=== PATIENT | female | born 1935 | race Caucasian/White ===

== ENCOUNTER 2022-03-22 10:25 | Emergency (ER) | payer MEDICARE, OTHER ==
[~2022-03-22] VITALS: Ht 154.9 cm; Wt 45.4 kg
[~2022-03-22 10:25] MED LIST: CRESTOR20 MG PO; LEVOTHYROXINE50 MCG PO; NORVASC5 MG PO
[2022-03-22] MEDS ORDERED: ELIQUIS2.5 MG PO (11:26)
[2022-03-22] MEDS ORDERED: FLUTICASONE PRO16 GM NAS (11:26)
[2022-03-22] MEDS ORDERED: METOPROLOL SUCC25 MG PO (11:26)
== END 2022-03-22 13:39 | disposition home or self-care (01) ==
LOC: ED 10:25
DX: R60.0 Localized edema (principal); I10 Essential (primary) hypertension; E03.9 Hypothyroidism, unspecified; Z79.899 Other long term (current) drug therapy; Z79.01 Long term (current) use of anticoagulants
CPT/HCPCS: 36415; 80053; 83880; 85025; 99283

== ENCOUNTER 2022-11-13 15:58 | Inpatient (IN) | payer MEDICARE, OTHER ==
[~2022-11-13] VITALS: Ht 154.9 cm; Wt 50.0 kg
--- NOTE | ~2022-11-13 | EKG ---
[facility] [address] [place], [place] [address] Draft EK completed, results pending confirmation PATIENT NAME: THOMAS BARCENAS Electrocardiogram DATE OF : [birth year] PHYSICIAN: PRELIMINARY REPORT #: [id number] REPORT IS CONFIDENTIAL AND NOT TO BE RELEASED WITHOUT AUTHORIZATION
--- OUTSIDE RECORDS SUMMARY | ~2022-11-13 | XMS | Continuity of Care Document ---
Demographics + + + | Address | [address] | | | [place] [address] | + + + | Preferred Language | Unknown | + + + | Marital Status | | + + + | Yazdanism Affiliation | Unknown | + + + | Race | White | + + + | Ethnic Group | Not or | + + + Author + + + | Author | [facility] | + + + | Organization | [facility] | + + + | Address | [address] | | | [place] [address] | + + + | Phone | | + + + Care Team Providers + + + + | Care Supervisor Coating Name | Role | Phone | + + + + Unavailable | Unavailable | + + + + Unavailable | Unavailable | + + + + Allergies No information. Encounters No information. Functional Status No information. Immunizations No information. Medications + + + + | date | description | facility | + + + + | 2022-03-22 00:00 | APIXABAN | [facility] | + + + + | 2022-03-22 00:00 | FLUTICASONE PROPIONATE 50 | [facility] | | | [facility] | | + + + + | 2022-03-22 00:00 | AMLODIPINE BESYLATE | [facility] | + + + + | 2022-03-22 00:00 | ROSUVASTATIN CALCIUM | [facility] | + + + + | 2022-03-22 00:00 | METOPROLOL SUCCINATE | [facility] | + + + + | 2022-03-22 00:00 | LEVOTHYROXINE SODIUM | [facility] | + + + + Problems + + + + | date | description | facility | + + + + | 2022-03-22 00:00 | Edema | [facility] | + + + + Procedures No information. Results/Labs +--------+--------+ +---------+--------+---------+ | test | date | facility | value | unit | notes | +--------+--------+ +---------+--------+---------+ + + | Result panel 1 | + + + + + +-------+ + + | | 2022-03-22 | [facility] | 3.3 | (missing) | (missing) | | (unavailable | 11:30:08 [facility] | | | + + + +-------+ + + + + | Result panel 2 | + + + + + +--------+ + + | | 2022-03-22 | [facility] | 50.2 | (missing) | (missing) | | (unavailable | 11:30:08 [facility] | | | | + + + +--------+ + + + + | Result panel 3 | + + + + + +--------+ + + | | 2022-03-22 | [facility] | 34.2 | (missing) | (missing) | | (unavailable | 11:30:08 [facility] | | | | + + + +--------+ + + + + | Result panel 4 | + + + + + +--------+ + + | | 2022-03-22 | [facility] | 14.1 | (missing) | (missing) | | (unavailable | 11:30:08 [facility] | | | | + + + +--------+ + + + + | Result panel 5 | + + + + + +-------+ + + | | 2022-03-22 | [facility] | 0.9 | (missing) | (missing) | | (unavailable | 11:30:08 [facility] | | | | + + + +-------+ + + + + | Result panel 6 | + + + + + +-------+ + + | | 2022-03-22 | [facility] | 0.6 | (missing) | (missing) | | (unavailable | 11:30:08 [facility] | | | | + + + +-------+ + + + + | Result panel 7 | + + + + + +------+---------+ + | | 2022-03-22 | [facility] | 97 | mg/dL | (missing) | | (unavailable | 11:30:08 [facility] | | | | + + + +------+---------+ + + + | Result panel 8 | + + + + + +------+---------+ + | | 2022-03-22 | [facility] | 17 | mg/dL | (missing) | | (unavailable | 11:30:08 [facility] | | | | + + + +------+---------+ + + + | Result panel 9 | + + + + + +--------+---------+ + | | 2022-03-22 | [facility] | 0.90 | mg/dL | (missing) | | (unavailable | 11:30:08 [facility] | | | | + + + +--------+---------+ + + + | Result panel 10 | + + + + + +------+ + + | | 2022-03-22 | [facility] | 61 | (missing) | (missing) | | (unavailable | 11:30:08 [facility] | | | | + + + +------+ + + + + | Result panel 11 | + + + + + +---------+ + + | | 2022-03-22 | [facility] | 18.88 | (missing) | (missing) | | (unavailable | 11:30:08 [facility] | | | | + + + +---------+ + + + + | Result panel 12 | + + + + + +--------+ + + | | 2022-03-22 | [facility] | 3.69 | (missing) | (missing) | | (unavailable | 11::08 | [facility] | | | | + + + +--------+ + + + + | Result panel 13 | + + + + + +-------+ + + | | 2022-03-22 | [facility] | 140 | (missing) | (missing) | | (unavailable | 11:30:08 [facility] | | | | + + + +-------+ + + + + | Result panel 14 | + + + + + +-------+ + + | | 2022-03-22 | [facility] | 4.3 | (missing) | (missing) | | (unavailable | 11:30:08 [facility] | | | | + + + +-------+ + + + + | Result panel 15 | + + + + + +-------+ + + | | 2022-03-22 | [facility] | 104 | (missing) | (missing) | | (unavailable | 11:30:08 [facility] | | | | + + + +-------+ + + + + | Result panel 16 | + + + + + +------+ + + | | 2022-03-22 | [facility] | 26 | (missing) | (missing) | | (unavailable | 11:30:08 [facility] | | | | + + + +------+ + + + + | Result panel 17 | + + + + + +--------+ + + | | 2022-03-22 | [facility] | 14.3 | (missing) | (missing) | | (unavailable | 11:30:08 [facility] | | | | + + + +--------+ + + + + | Result panel 18 | + + + + + +-------+---------+ + | | 2022-03-22 | [facility] | 8.5 | mg/dL | (missing) | | (unavailable | 11:30:08 [facility] | | | | + + + +-------+---------+ + + + | Result panel 19 | + + + + + +-------+ + + | | 2022-03-22 | [facility] | 6.6 | (missing) | (missing) | | (unavailable | 11:30:08 [facility] | | | | + + + +-------+ + + + + | Result panel 20 | + + + + + +-------+ + + | | 2022-03-22 | [facility] | 3.5 | (missing) | (missing) | | (unavailable | 11:30:08 [facility] | | | | + + + +-------+ + + + + | Result panel 21 | + + + + + +-------+ + + | | 2022-03-22 | [facility] | 3.1 | (missing) | (missing) | | (unavailable | 11:30:08 [facility] | | | | + + + +-------+ + + + + | Result panel 22 | + + + + + +--------+ + + | | 2022-03-22 | [facility] | 1.13 | (missing) | (missing) | | (unavailable | 11:30:08 [facility] | | | | + + + +--------+ + + + + | Result panel 23 | + + + + + +--------+ + + | | 2022-03-22 | [facility] | 11.8 | (missing) | (missing) | | (unavailable | 11:30:08 [facility] | | | | + + + +--------+ + + + + | Result panel 24 | + + + + + +-------+ + + | | 2022-03-22 | [facility] | 0.5 | (missing) | (missing) | | (unavailable | 11:30:08 [facility] | | | | + + + +-------+ + + + + | Result panel 25 | + + + + + +------+ + + | | 2022-03-22 | [facility] | 24 | (missing) | (missing) | | (unavailable | 11:30:08 [facility] | | | | + + + +------+ + + + + | Result panel 26 | + + + + + +------+ + + | | 2022-03-22 | [facility] | 25 | (missing) | (missing) | | (unavailable | 11:30:08 [facility] | | | | + + + +------+ + + + + | Result panel 27 | + + + + + +------+ + + | | 2022-03-22 | [facility] | 41 | (missing) | (missing) | | (unavailable | 11:30:08 [facility] | | | | + + + +------+ + + + + | Result panel 28 | + + + + + +--------+ + + | | 2022-03-22 | [facility] | 36.3 | (missing) | (missing) | | (unavailable | 11:30:08 [facility] | | | | + + + +--------+ + + + + | Result panel 29 | + + + + + +--------+ + + | | 2022-03-22 | [facility] | 98.2 | (missing) | (missing) | | (unavailable | 11:30:08 [facility] | | | | + + + +--------+ + + + + | Result panel 30 | + + + + + +--------+ + + | | 2022-03-22 | [facility] | 32.1 | (missing) | (missing) | | (unavailable | 11:30:08 [facility] | | | | + + + +--------+ + + + + | Result panel 31 | + + + + + +--------+ + + | | 2022-03-22 | [facility] | 32.7 | (missing) | (missing) | | (unavailable | 11:30:08 [facility] | | | | + + + +--------+ + + + + | Result panel 32 | + + + + + +--------+ + + | | 2022-03-22 | [facility] | 14.2 | (missing) | (missing) | | (unavailable | 11:30:08 [facility] | | | | + + + +--------+ + + + + | Result panel 33 | + + + + + +-------+ + + | | 2022-03-22 | [facility] | 169 | (missing) | (missing) | | (unavailable | 11:30:08 [facility] | | | | + + + +-------+ + + Social History No information. Vital Signs + + + +---------+ | date | measurement | value | units | + + + +---------+ | 2022-03-22 00:00 | BMI | 18.9 | kg/m2 | + + + +---------+ | 2022-03-22 00:00 | BP_diastolic | 62 | mmHg | + + + +---------+ | 2022-03-22 00:00 | BP_systolic | 146 | mmHg | + + + +---------+ | 2022-03-22 00:00 | heart_rate | 49 | /min | + + + +---------+ | 2022-03-22 00:00 | height_metric | 154.94 | cm | + + + +---------+ | 2022-03-22 00:00 | height_standard | 61 | in | + + + +---------+ | 2022-03-22 00:00 | o2_saturation | 100 | % | + + + +---------+ | 2022-03-22 00:00 | respiration_rate | 16 | /min | + + + +---------+ | 2022-03-22 00:00 | temperature_metric | 36.89 | C | | | | | | + + + +---------+ | 2022-03-22 00:00 | | 98.4 | F | | | temperature_standar | | | | | d | | | + + + +---------+ | 2022-03-22 00:00 | weight_metric | 45.36 | kg | + + + +---------+ | 2022-03-22 00:00 | weight_standard | 100 | lb | + + + +---------+"
--- OUTSIDE RECORDS SUMMARY | ~2022-11-13 | XMS | Continuity of Care Document ---
Demographics + + + | Address | [address] | | | [place] [address] | + + + | Preferred Language | Unknown | + + + | Marital Status | | + + + | Mormon Affiliation | Unknown | + + + | Race | White | + + + | Ethnic Group | Not or | + + + Author + + + | Author | [facility] | + + + | Organization | [facility] | + + + | Address | [address] | | | [place] [address] | + + + | Phone | | + + + Care Team Providers + + + + | Care Rotor Casting Machine Setup Operator Name | Role | Phone | + + + + Unavailable | Unavailable | + + + + Unavailable | Unavailable | + + + + Allergies No information. Encounters No information. Functional Status No information. Immunizations No information. Medications + + + + | date | description | facility | + + + + | 2022-03-22 00:00 | APIXABAN | [facility] | + + + + | 2022-03-22 00:00 | FLUTICASONE PROPIONATE 50 | [facility] | | | [facility]CG | | + + + + | 2022-03-22 00:00 | AMLODIPINE BESYLATE | [facility] | + + + + | 2022-03-22 00:00 | ROSUVASTATIN CALCIUM | [facility] | + + + + | 2022-03-22 00:00 | METOPROLOL SUCCINATE | [facility] | + + + + | 2022-03-22 00:00 | LEVOTHYROXINE SODIUM | [facility] | + + + + Problems + + + + | date | description | facility | + + + + | 2022-03-22 00:00 | Edema | [facility] | + + + + Procedures No [...]
--- OUTSIDE RECORDS SUMMARY | ~2022-11-13 | XMS | Continuity of Care Document ---
Demographics + + + | Address | [address] | | | [place] [address] | + + + | Preferred Language | Unknown | + + + | Marital Status | | + + + | Hinduism Affiliation | Unknown | + + + | Race | White | + + + | Ethnic Group | Not or | + + + Author + + + | Author | [facility] | + + + | Organization | [facility] | + + + | Address | [address] | | | [place] [address] | + + + | Phone | | + + + Care Team Providers + + + + | Care Panel Builder Name | Role | Phone | + + + + Unavailable | Unavailable | + + + + Unavailable | Unavailable | + + + + Allergies and Intolerances + + + + + + | date | description | facility | reaction | severity | + + + + + + | (no date) | No Known Drug | [facility] | (no reaction) | (no severity) | | | Allergies | | | | + + + + + + Encounters No information. Functional Status No information. Immunizations No information. Medications + + + + | date | description | facility | + + + + | 2022-03-22 00:00 | APIXABAN | [facility] | + + + + | 2022-03-22 00:00 | FLUTICASONE PROPIONATE 50 | [facility] | | | [facility]CG | | + + + + | 2022-03-22 00:00 | AMLODIPINE BESYLATE | [facility] | + + + + | 2022-03-22 00:00 | ROSUVASTATIN CALCIUM | [facility] | + + + + | 2022-03-22 00:00 | METOPROLOL SUCCINATE | [facility] | + + + + | 2022-03-22 00:00 | LEVOTHYROXINE SODIUM | [facility] | + + + + Problems + + + + | date | description | facility | + + + + | 2022-03-22 00:00 | Edema | [facility] | + + + + [...]
[~2022-11-13 15:58] MED LIST changes: +ELIQUIS2.5 MG PO; +FLUTICASONE PRO16 GM NAS; +METOPROLOL SUCC25 MG PO
[2022-11-13 16:19] LABS: BASOPHILS 0.2 % (0-2); HEMATOCRIT 44.8 % (35.0-50.0); HEMOGLOBIN 14.7 g/dL (12.0-18.0); LYMPHOCYTES 4.6 % (24-44); MCH 31.3 (27-36); MCHC 32.8 g/dl (30-36); MCV 95.5 fl (81-99); MONOCYTES 7.8 % (0-12); NEUTROPHILS 87.4 % (39-80); PLATELET COUNT 221 K/uL (140-440); RBC 4.69 M/ul (4.3-5.7); RDW 14.4 (10.5-15.0)
[2022-11-13] MEDS ORDERED: FLUOXETINE HCL10 MG PO (16:25)
[2022-11-13 16:43] LABS: ALBUMIN 3.5 g/dL (3.4-5.0); ALCOHOL, MEDICAL <3 ng/dL (<3); ALKALINE PHOSPHATASE 104 U/L (46-116); ALT (SGPT) 44 U/L (14-59); ANION GAP 13.9 (7-21); AST (SGOT) 109 U/L (15-37); BILIRUBIN, TOTAL 0.9 ng/dL (0.2-1.0); CALCIUM 9.4 mg/dL (8.5-10.1); CARBON DIOXIDE 27 mmol/L (21-32); CHLORIDE 101 mmol/L (98-107); CREATININE, SERUM 1.08 mg/dL (0.55-1.02); GLOMERULAR FILTRATION RATE,EST 49 mL/min (>60); POTASSIUM 3.9 mmol/L (3.5-5.1); PROTEIN, TOTAL 7.4 g/dL (6.4-8.2); UREA NITROGEN 27 mg/dL (7-18)
[2022-11-13 16:44] LABS: CREATINE KINASE 3542 U/L (26-192)
[2022-11-13 17:06] LABS: ABO A; RH POSITIVE
[2022-11-13 17:07] LABS: ANTIBODY SCREEN NEGATIVE
[2022-11-13 17:52] LABS: BILIRUBIN, URINE NEGATIVE (negative); BLOOD/HGB, URINE LARGE (Negative); KETONE, URINE TRACE (Negative); LEUK ESTERASE, URINE NEGATIVE (negative); NITRITE, URINE NEGATIVE (negative); PH, URINE 5.5 (5-7)
[2022-11-13 17:54] LABS: AMPHETAMINES, UR NEGATIVE (NEGATIVE); BARBITURATES, UR NEGATIVE (NEGATIVE); BENZODIAZEPINES, UR NEGATIVE (NEGATIVE); BUPRENORPHINE,UR NEGATIVE (NEGATIVE); COCAINE, UR NEGATIVE (NEGATIVE); MARIJUANA (THC), UR NEGATIVE (NEGATIVE); MDMA, UR NEGATIVE (NEGATIVE); METHADONE, UR NEGATIVE (NEGATIVE); METHAMPHETAMINE, UR NEGATIVE (NEGATIVE); OPIATES, UR NEGATIVE (NEGATIVE); OXYCODONE, UR NEGATIVE (NEGATIVE); PHENCYCLIDINE, UR NEGATIVE (NEGATIVE); TRICYCLIC ANTIDEPRESSANT, UR NEGATIVE (NEGATIVE)
[2022-11-13 18:00] LABS: BACTERIA, URINE NONE SEEN /hpf (negative); CASTS, URINE NONE SEEN \\lpf; COLLECTION TYPE, URINE CLEAN CATCH; CRYSTALS, URINE NONE SEEN (0-1+); EPITHELIAL CELLS, URINE NONE SEEN /lpf (0-1+); REFLEX CULTURE, URINE No (No); WHITE BLOOD CELLS, URINE 0-1 /HPF (0-5)
--- NOTE | 2022-11-13 19:24 | EKG ---
[facility] [address] [place] [address] Signed Atrial fibrillation Nonspecific T wave abnormality Abnormal ECG When compared with ECG of 13-NOV-2022 18:05, (Unconfirmed) Current undetermined rhythm precludes rhythm comparison, needs review QT has shortened Confirmed by KIRSTY MCKEON MD ([id number]) on 11/13/2022 7:24:41 PM Electronically Signed By: KIRSTY MCKEON 11/13/22 192 PATIENT NAME: MERLYN BARCENASPARTH MADERA Electrocardiogram DATE OF : [birth year] PHYSICIAN: KIRSTY MCKEON REPORT #: [id number] REPORT IS CONFIDENTIAL AND NOT TO BE RELEASED WITHOUT AUTHORIZATION
--- NOTE | 2022-11-13 20:00 | NUR ---
RETREIVED PT FROM ED, RECEIVED REPORT FROM CHARLIE JONES, ALL QUESTIONS AND CONCERNS WERE ADDRESSED AT THIS TIME, SON AT BEDSIDE AND ACCOMPANIED PT TO CCU; PT IS A&O, FOLLOWS COMMANDS APPROPRIATELY, SPEACH IS SLURRED, HARD TO DETERMINE IF IT'S D/T NOT HAVING IN LOWER DENTURES OR SOME OTHER CAUSE, MRI IS SCHEDULED FOR A.M., NO OTHER DEFICITS NOTED, GENERALIZED WEAKNESS, VSS, AFEBRILE, LUNGS ARE CLEAR/DIMINISHED, CAP REFILL LESS THAN 3 SECS IN ALL EXTREMITIES, PERIPHERAL PULSES PRESENT, HR IN THE 60-70'S, AFIB, MULTIPLE REDDENED AREAS NOTES IN FLOW SHEETS, CALL LIGHT WITHIN REACH
[2022-11-13 20:20] VITALS: BP 174/77
--- NOTE | 2022-11-14 00:45 | NUR ---
PT ASLEEP, EASY TO AROUSE, PUREWICK IN PLACE, ALL NEEDS MET AT THIS TIME, CALL LIGHT WITHIN REACH
[2022-11-14 05:00] VITALS: BP 124/93
[2022-11-14 05:11] LABS: BASOPHILS 0.3 % (0-2); HEMATOCRIT 37.7 % (35.0-50.0); HEMOGLOBIN 12.5 g/dL (12.0-18.0); MCH 31.4 (27-36); MCHC 33.1 g/dl (30-36); MCV 94.8 fl (81-99); MONOCYTES 9.9 % (0-12); NEUTROPHILS 80.8 % (39-80); PLATELET COUNT 185 K/uL (140-440); RBC 3.97 M/ul (4.3-5.7); RDW 14.5 (10.5-15.0)
[2022-11-14 05:34] LABS: ALBUMIN 2.7 g/dL (3.4-5.0); ALBUMIN/GLOBULIN RATIO 0.87 (1.1-2.4); ANION GAP 13.8 (7-21); BILIRUBIN, TOTAL 0.7 ng/dL (0.2-1.0); BUN/CREATININE RATIO 29.26 (6.0-28.6); CALCIUM 8.2 mg/dL (8.5-10.1); CREATININE, SERUM 0.82 mg/dL (0.55-1.02); POTASSIUM 3.8 mmol/L (3.5-5.1); PROTEIN, TOTAL 5.8 g/dL (6.4-8.2)
--- NOTE | 2022-11-14 06:28 | NUR ---
PT STATED THAT SHE SLEPT WELL AND WAS COMFORTABLE THROUGHOUT EXECUTIVE ASSISTANT TO GENERAL COUNSEL,PT CONSENTED TO PICTURES OF HER INJURIES/WOUNDS FOR HER CHART, SEE CHART FOR PHOTOS, NO SIGNIFICANT CHANGES OVER EXECUTIVE ASSISTANT TO GENERAL COUNSEL, LABS ARE IMPROVING, CALL LIGHT WITHIN REACH AND BED ALARM SET
--- NOTE | 2022-11-14 07:30 | NUR ---
REPORT RECEIVED FROM WALI GUERRA. PT RESTING IN BED WITH EYES CLOSED, RESP EVEN AND UNLABORED.
--- NOTE | 2022-11-14 08:15 | NUR ---
DR MCKEON IN TO SEE PT AND DISCUSS PLAN OF CARE.
[2022-11-14 08:26] VITALS: BP 132/91
--- NOTE | 2022-11-14 09:19 | NUR ---
PHYSICAL THERAPY IN TO WORK WITH PT, SON IN ROOM TO SEE PT. PT HAS JUST FINISHED UP EATING BREAKFAST, NO SWALLOWING ISSUES NOTED.
--- NOTE | 2022-11-14 14:45 | NUR ---
REPORT RECIEVED FROM KEILY GUERRA ALL QUESTIONS ANSWERED.
--- NOTE | 2022-11-14 15:33 | NUR ---
PT TRANSFERED TO RM 112, ORIENTED TO ROOM AND CALL LIGHT, WITHIN REACH. FAMILY AT BEDSIDE. PT DENIES PAIN OR NEEDS AT THIS TIME.
--- NOTE | 2022-11-14 15:36 | NUR ---
PT TRANSFERRED TO MED SURG ROOM 112. REPORT GIVEN TO ROWDY GUERRA. PTS DAUGHTER HAS ARRIVED AND IS WALKING DOWN TO 112 WITH PT.
[2022-11-14 17:51] VITALS: BP 124/75
--- NOTE | 2022-11-14 19:27 | NUR ---
REPORT RECEIVED FROM DAY SHIFT RN. PT LYING IN BED ALERT AND ORIENTED. WARM BLANKET PROVIDED. NO FURTHER NEEDS. WHITE BOARD UPDATED. CALL LIGHT IN REACH. BED ALARM FOR SAFETY.
[2022-11-14 21:46] VITALS: BP 130/71
--- NOTE | 2022-11-14 22:27 | NUR ---
EVENING ASSESSMENT COMPLETE. PT DENIES PAIN OR NAUSEA. REPORTS FEELING "SORE." DENIES PRN FOR PAIN WHEN OFFERED. IVF INFUSING WNL. PUREWICK IN PLACE. PT VOIDING YELLOW URINE. ATTENDS CHANGED AFTER RASHAUN CARE. PT ABLE TO ASSIST WITH ROLLING IN BED. REPOSITIONED FOR COMFORT. SLURRED SPEECH NOTED. HOB ELEVATED FOR DRINKING WATER. NO COUGHING OR CHOKING NOTED. WARM BLANKET PROVIDED. PT DENIES QUESTIONS OR CONCERNS. CALL LIGHT IN REACH. BED ALARM FOR SAFETY.
--- NOTE | 2022-11-14 23:19 | NUR ---
NEW BAG IV FLUIDS PROVIDED. IV WNL. ICE WATER PROVIDED. PT STATES NO OTHER NEEDS. CALL LIGHT IN REACH.
--- NOTE | 2022-11-15 00:11 | NUR ---
PT AWAKE IN BED. REPORTS LEFT ELBOW PAIN. PRN FOR PAIN ADMIN PER EMAR. PT REPOSITIONED TO RIGHT SIDE WITH PILLOWS. LEFT ARM ELEVATED ON A PILLOW. NO FURTHER NEEDS.
--- NOTE | 2022-11-15 03:17 | NUR ---
PT RESTING WITH EYES CLOSED. AWAKENS EASILY. REPOSITIONED WITH PILLOWS. WARM BLANKET PROVIDED. ASSESSMENT UNCHANGED. PT DENIES PAIN AT THIS TIME. NO FURTHER NEEDS. CALL LIGHT IN REACH. BED ALARM FOR SAFETY.
[2022-11-15 05:18] VITALS: BP 133/64
[2022-11-15 05:22] LABS: BASOPHILS 0.4 % (0-2); EOSINOPHILS 0.1 % (0-6); HEMATOCRIT 35.4 % (35.0-50.0); HEMOGLOBIN 11.7 g/dL (12.0-18.0); LYMPHOCYTES 13.7 % (24-44); MCH 31.5 (27-36); MCHC 33.2 g/dl (30-36); NEUTROPHILS 75.8 % (39-80); PLATELET COUNT 169 K/uL (140-440); RBC 3.73 M/ul (4.3-5.7); RDW 14.6 (10.5-15.0)
--- NOTE | 2022-11-15 05:23 | NUR ---
LAB IN ROOM FOR MORNING DRAW. VS AND I&O OBTAINED. NEW PUREWICK PLACED AFTER RASHAUN CARE. PT REPOSITIONED IN BED. HOB ELEVATED FOR SIPS OF WATER. SOME COUGHING NOTED AFTER SWALLOWING. PT REPORTS CHRONIC COUGH. HOB REMAINS ELEVATED. PT REPORTS SHE IS COMFORTABLE. NO FURTHER NEEDS. BED ALARM FOR SAFETY.
[2022-11-15 05:32] LABS: ANION GAP 12.2 (7-21); BUN/CREATININE RATIO 31.88 (6.0-28.6); CALCIUM 7.8 mg/dL (8.5-10.1); CREATININE, SERUM 0.69 mg/dL (0.55-1.02); POTASSIUM 3.2 mmol/L (3.5-5.1)
--- NOTE | 2022-11-15 07:18 | NUR ---
REPORT RECEIVED FROM NIGHT RN, ALL QUESTIONS ANSWERED.
[2022-11-15 09:59] VITALS: BP 123/62
--- NOTE | 2022-11-15 12:22 | NUR ---
PT REPOSITIONED IN BED FOR LUNCH, DENIES PAIN OR NEEDS AT THIS TIME. CALL LIGHT IN REACH.
[2022-11-15 13:38] VITALS: BP 117/55
--- NOTE | 2022-11-15 15:24 | NUR ---
AFTERNOON ASSESSMENT COMPLETE. PT REPOSITIONED, BRESAMUEL AND CLIFFORD CHANGED, RASHAUN CARE COMPELTED. SKIN CARE PROVIDED. PT DENIES NEEDS AT THIS TIME. CALL LIGHT IN REACH.
[2022-11-15 17:49] VITALS: BP 103/60
[2022-11-15] MEDS ORDERED: ELIQUIS2.5 MG PO (17:57)
--- NOTE | 2022-11-15 19:35 | NUR ---
PATIENT CALLED. 2 PA REPOSITIONED PATIENT LAYING ON HER RIGHT SIDE. WARM BLANKET PROVIDED. DENIES FURTHER NEEDS AT THIS TIME.
--- NOTE | 2022-11-15 19:40 | NUR ---
REPORT RECEIVED FROM DAY SHIFT RN. PT LYING IN BED ALERT AND ORIENTED. PT REPOSITIONED WITH PILLOWS. WARM BLANKET PROVIDED. NO FURTHER NEEDS. WHITE BOARD UPDATED. CALL LIGHT IN REACH.
[2022-11-15 20:35] VITALS: BP 146/79
--- NOTE | 2022-11-15 21:05 | NUR ---
EVENING ASSESSMENT COMPLETE. SCHEDULED MEDS ADMIN PER EMAR. PRN ADMIN FOR GENERALIZED DISCOMFORT. IVF INFUSING PER ORDER. CLEAN PUREWICK PLACED AFTER RASHAUN CARE. PT HAD SMEAR OF BM. CLEAN ATTENDS IN PLACE. 2PA TO REPOSITION IN BED. PT DENIES QUESTIONS OR CONCERS. CALL LIGHT IN REACH. BED ALARM FOR SAFETY.
--- NOTE | 2022-11-15 23:34 | NUR ---
IV PUMP ALARMING. NEW BAG IVF INFUSING PER ORDER. PT REPOSITIONED WITH PILLOWS. WARM BLANKET PROVIDED. PT REPORTS SHE IS RESTING COMFORTABLY. NO FURTHER NEEDS.
--- NOTE | 2022-11-16 01:32 | NUR ---
PT UP TO BR TO VOID. BACK TO BED, DANIELA WELL. PRN FOR 4/10 ABD PAIN ADMIN PER EMAR. PT DENIES NAUSEA. ABD SOFT. BOWEL TONES ACTIVE. ICE PACK TO INCISIONS. VS AND I&O OBTAINED. NO FURTHER NEEDS. CALL LIGHT IN REACH.
--- NOTE | 2022-11-16 02:26 | NUR ---
PT AWAKE IN BED. ASSISTED TO REPOSITION TO LEFT SIDE. ASSESSMENT COMPLETE. PUREWICK PATENT WITH DARK YELLOW URINE. PT DENIES PAIN AT THIS TIME. HOB ELEVATED FOR SIPS OF WATER. PT HAD BRIEF EPISODE OF DRY COUGH SEVERAL MINUTES AFTER SWALLOWING WHICH SHE REPORTS IS CHROIC. HOB REMAINS 30 DEGREES. NO FURTHER NEEDS. BED ALARM FOR SAFETY. CALL LIGHT IN REACH.
[2022-11-16 05:23] VITALS: BP 136/95
[2022-11-16 05:39] LABS: ANION GAP 11.3 (7-21); BUN/CREATININE RATIO 20.96 (6.0-28.6); CALCIUM 7.7 mg/dL (8.5-10.1); CREATININE, SERUM 0.62 mg/dL (0.55-1.02); POTASSIUM 3.3 mmol/L (3.5-5.1)
--- NOTE | 2022-11-16 05:57 | NUR ---
VS AND I&O OBTAINED. CLEAN PUREWICK PLACED AFTER RASHAUN CARE. PT VOIDING QS. REPOSITIONED TO RIGHT SIDE WITH PILLOWS. WARM BLANKET PROVIDED. PT DENIES PAIN AT THIS TIME. HOB ELEVATED FOR SIPS OF WATER. NO COUGHING NOTED. NO FURTHER NEEDS. CALL LIGHT IN REACH.
--- NOTE | 2022-11-16 06:22 | NUR ---
PT OFF THE FLOOR FOR MRI. EARRINGS REMOVED AND PLACED IN SAFE IN PT ROOM.
--- NOTE | 2022-11-16 07:15 | NUR ---
recieved report from nightshift nurse. patient is currently resting. no cares needed at this time
--- NOTE | 2022-11-16 09:47 | NUR ---
PATIENT ALERT AND ORIENTED. LIVES ALONE, SON RECENTLY MOVED OUT. DAUGHTER, DARRON, COMES IN FREQUENTLY AND ASSISTS WITH NEEDS. DAUGHTER PROVIDES TRANSPORTATION AND DOES SHOPPING AND PICKS UP PRESCRIPTIONS FOR PATIENT. PATIENT STATES SHE DOES NOT WANT TO RETURN HOME DUE TO FALLING TWICE RECENTLY AND DOES NOT CURRENTLY FEEL SAFE. DISCUSSED SNF VERSUS ASSISTED LIVING. IS OPEN TO ASSISTED LIVING FACILITIES WELL. THINKS SHE HAS DAY CARE ATTENDANT MEDICAID.INFORMED IT IS A 35-45 DAY WAITING PERIOD ONCE APPLIED IF SHE DOES NOT HAVE COVERAGE. VERALIZES UNDERSTANDING. INFORMED HER CHART HAS BEEN SENT TO [facility], PER , NO OPENINGS. CHART HAS ALSO BEEN SENT TO [facility] AND [facility] [place].
[2022-11-16 09:56] VITALS: BP 150/90
--- NOTE | 2022-11-16 10:00 | NUR ---
PT SON CAME TO VISIT AND ASKED TO SPEAK WITH CASE MANAGEMENT. NO CARES ARE NEEDED AT THIS TIME FOR PATIENT CALL LIGHT WITHIN REACH
--- NOTE | 2022-11-16 10:18 | NUR ---
SPOKE WITH CORY AT [facility]. STATES THEY HAVE BEDS OPEN AND WILL REVIEW THE PATIENT'S CHART. CHART FAXED TO [facility].
--- NOTE | 2022-11-16 11:12 | NUR ---
ATTEMPT TO CALL DARRON, DAUGHTER, TO UPDATE HER ON PLAN OF CARE. PHONE NUMBER DOES NOT WORK. PATIENT'S SON, BETO WAS IN TO SEE HER. HAS QUESTIONS REGARDING PATIENT'S MEDICATIONS AND HER PLAN. STATES PATIENT'S GRANDSON WAS LIVING WITH HER. INFORMED PATIENT VERBALIZED HE IS NO LONGER LIVING IN HER HOME. QUESTIONS ANSWERED. INFORMED HIM VANESSA IS EXPECTED TO BE IN TO SEE PATIENT TODAY.
--- NOTE | 2022-11-16 11:40 | NUR ---
REQUESTED A WARM BLANKET AND IS CURRENTLY RELAXING NO OTHER CARES NEEDED AT THIS TIME. CALL LIGHT WITHIN REACH.
--- NOTE | 2022-11-16 11:41 | NUR ---
RECEIVED CALL FROM CORY MASON AT [facility]. STATES SHE MAY ACCEPT THE PATIENT TODAY, BUT ARE UNABLE TO PROVIDE TRANSPORTATION. PATIENT INFORMED. DOES NOT HAVE ANOTHER NUMBER FOR DAUGHTER, DARRON, WILL ATTEMPT TO CALL AGAIN. NOTIFIED DARRON, DAUGHTER. WILL MAKE ARRANGEMENTS TO TRANSPORT PATIENT THIS AFTERNOON. WILL GET PATIENT BELONGINGS TO TAKE WELL.
--- NOTE | 2022-11-16 12:33 | NUR ---
wheelchair van arranged for 1:45 PM pickup to transport patient. Araseli bell [facility] updated. Orders and updated notes and [facility] faxed at this time. Daughter, Oneida, updated.
== END 2022-11-16 13:45 | DRG 565 ==
LOC: ED 15:58 → MS 18:56 → CCU 18:56 → MS 18:56
PROVIDERS: Emergency Medicine; ADMIT Internal Medicine; ATTEND Family Medicine
DX: T79.6XXA Traumatic ischemia of muscle, initial encounter (principal); N17.9 Acute kidney failure, unspecified; I10 Essential (primary) hypertension; E03.9 Hypothyroidism, unspecified; Z66 Do not resuscitate; F41.9 Anxiety disorder, unspecified; S10.93XA Contusion of unspecified part of neck, initial encounter; S30.810A Abrasion of lower back and pelvis, initial encounter; I48.0 Paroxysmal atrial fibrillation; K13.0 Diseases of lips; E78.00 Pure hypercholesterolemia, unspecified; E78.5 Hyperlipidemia, unspecified; R13.10 Dysphagia, unspecified; R79.89 Other specified abnormal findings of blood chemistry; R47.81 Slurred speech; E87.6 Hypokalemia; S32.19XD Other fracture of sacrum, subsequent encounter for fracture with routine healing; Z90.49 Acquired absence of other specified parts of digestive tract; Z98.890 Other specified postprocedural states; Z98.891 History of uterine scar from previous surgery; Z79.890 Hormone replacement therapy; Z79.899 Other long term (current) drug therapy; Z79.01 Long term (current) use of anticoagulants; Y90.9 Presence of alcohol in blood, level not specified; W19.XXXA Unspecified fall, initial encounter
CPT/HCPCS: 36415; 70450; 70486; 70553; 71260; 72125; 74177; 80048; 80053; 81001; 82553; 83690; 85025; 86850; 86900; 86901; 92610; 93005; 93010; 97110; 97161; 97165; 97530; 99285-25; A9270; A9579; G0480; J7030; J7040; Q9967